=== PATIENT | female | born 1980 | race American Indian/Alaskan Native ===

== ENCOUNTER 2018-09-17 12:04 | Outpatient (CLI) | payer MEDICAID ==
[2018-09-17] MEDS ORDERED: LACTATED RINGERS 500 ML IV ONE (12:10)
[2018-09-17 12:37] VITALS: BP 105/58
[2018-09-17] MEDS ORDERED: NITRATEST PAPER MC ONE (12:40)
[2018-09-17 13:01] LABS: Bacteria,Urine 1+ /HPF (Negative); Bilirubin,Urine NEG (Negative); Blood,Urine NEG (Negative); Color,Urine Yellow (Yellow); Mucus,Urine 2+ /HPF; Protein,Urine <15 mg/dL mg/dL (Negative)
--- NOTE | 2018-09-18 09:24 | Ultrasound Report ---
Limited OB sonogram: History: CHANDAN. Findings: Gestation: Single Position: Cephalic Amniotic Fluid: CHANDAN = 15.7 cm Heart Rate: 101 BPM
== END 2018-09-17 14:20 | disposition home or self-care (01) ==
LOC: TRG 12:04
PROVIDERS: ATTEND Obstetrics & Gynecology
DX: O47.03 False labor before 37 completed weeks of gestation, third trimester (principal); O13.3 Gestational [pregnancy-induced] hypertension without significant proteinuria, third trimester; O24.419 Gestational diabetes mellitus in pregnancy, unspecified control; Z3A.32 32 weeks gestation of pregnancy
CPT/HCPCS: 76815; 81001

== ENCOUNTER 2018-10-29 06:07 | Inpatient (IN) | payer MEDICAID ==
[2018-10-29] MEDS ORDERED: PITOCin/NS 20 UNIT/1000ML DRIP 20,000 MILLIUNITS/1,000 ML BAG IV ONE (06:46)
--- NOTE | 2018-10-29 07:20 | History and Physical Report ---
History of Present Illness Date of examination: 10/29/18 (pt arrived 6cm dilated) Date of admission: 10/29/18 06:18 History of present illness: EDC Confirmation: 11/12/2018 Gestational Age: 24 weeks Past History : 12 Term Births: 6 Premature Births: 3 Living Children: 9 Para: 10 Mult. Births: 1 Prev : 0 Prev. attempt? 0 Aborta: 1 Elect. Ab: 0 Spont. Ab: 1 Ectopics: 0 # 1 Delivery date: 1999 Weeks Gestation: 41 labor: no Delivery type: Anesthesia type: epidural Delivery location: [facility] Sex: Male weight: 9-15 # 2 Delivery date: 2003 Weeks Gestation: 39 labor: no Delivery type: Anesthesia type: none Delivery location: [facility] Infant Sex: Female weight: 8-10 # 3 Delivery date: 2005 Weeks Gestation: 37 labor: no Delivery type: Delivery location: [facility] Sex: Male weight: 8-12 # 4 Delivery date: 2006 Weeks Gestation: 37 labor: no Delivery type: Delivery location: [place] Sex: Female weight: 7-10 # 5 Delivery date: 2007 Weeks Gestation: 38 labor: no Delivery type: Delivery location: [facility] Infant Sex: Male weight: 9-15 # 6 Delivery date: 2008 Weeks Gestation: 37 labor: no Delivery type: Delivery location: [facility] Infant Sex: Male weight: 7-5 # 7 Delivery date: 2010 Weeks Gestation: 36 labor: no Delivery type: Delivery location: [facility] Sex: Male weight: 7-15 Comments: PROM # 8 Delivery date: 2012 Weeks Gestation: 36 labor: yes Delivery type: Delivery location: [facility] Infant Sex: Female weight: 6-5 # 9 Delivery date: 2014 Weeks Gestation: 36 Delivery type: Delivery location: [facility] Infant Sex: Female weight: 6-12 Comments: PROM # 10 Delivery date: 2015 Weeks Gestation: 22 Delivery type: Delivery location: [facility] Sex: Male Comments: PPROM - nonviable # 11 Delivery date: 2018 Weeks Gestation: 17 Delivery type: SAB Comments: twins Past Medical History: Gestational Diabetes - 2009 Hypertension - no meds Past Surgical History: Negative Past Surgical History Past Medical History Surgery (Non-transactional attorney): Negative Past Surgical History Abnormal PAP: negative ZEN Exposure: negative Infertility: negative Uterine Anomaly: negative Uterine Surgery (not C/S): negative Other Gynecologic Problems: negative Family Hx: DM - maternal side High cholesterol - paternal side Social Hx: Patient is Smoking History: Patient has never smoked. Infection History Hx of STD: none HIV Risk Eval: low risk Hepatitis B Risk Eval: low risk Personal hx. of genital herpes: no Partner hx. of genital herpes: no Rash, Viral, or Febrile illness since last LMP? no Varicella/Chicken Pox Status: Immunized TB Risk: no Genetic History ADVANCED MATERNAL AGE Congenital Heart Defect: Mom: no Dad: no Cristobal Disease: Mom: no Dad: no Thalassemia Mom: no Dad: no Neural Tube Defect Mom: no Dad: no Down's Syndrome Mom: no Dad: no Triston-Sachs Mom: no Dad: no Sickle Cell Disease/Trait Mom: no Dad: no Hemophilia Mom: no Dad: no Muscular Dystrophy Mom: no Dad: no Cystic Fibrosis Mom: no Dad: no [place] Chorea Mom: no Dad: no Mental Retardation Mom: no Dad: no Fragile X Mom: no Dad: no Other Genetic/Chromosomal Disorder Mom: no Dad: no Child w/other defect Mom: no Dad: no Enviromental Exposures Xray Exposure: no Medication, drug, or alcohol use since LMP: no Chemical/Other Exposure: no Exposure to Cat Liter: no Hx of Parvovirus (Fifth Disease): no 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 Comments: Pt instructed per [employer] to be on rest and stop employment Active Medications (reviewed today): None Current Allergies: PCN (PENICILLIN V POTASSIUM) (Critical) Past History - Obstetrical History Expected Date of Delivery: 11/12/18 Actual Gestation: 38 Week(s) 0 Day(s) : 12 Para: 9 Hx # Term Pregnancies: 6 Number of Pregnancies: 3 (set of twins) Spontaneous Abortions: 1 Number of Living Children: 9 Medications and Allergies Allergies Allergy/AdvReac Type Severity Reaction Status Date / Time Penicillins Allergy Rash Verified 03/06/13 09:28 Home Medications Medication Instructions Recorded Confirmed Last Taken Type Hydrocodone Bit/Acetaminophen 1 each PO Q6HR #15 tablet 03/06/13 Unknown Rx [Lortab 5-500 Tablet] Hyoscyamine Subl [Levsin Sl] 0.125 mg PO Q6HR #20 tablet 03/06/13 Unknown Rx Ibuprofen [Motrin] 600 mg PO Q8H PRN #60 tablet 03/06/13 Unknown Rx Promethazine [Phenergan] 25 mg PO Q6H PRN #20 tablet 03/06/13 Unknown Rx Active Meds: Active Medications Acetaminophen (Tylenol) 650 mg PO Q4H PRN PRN Reason: Pain MILD(1-3)/Fever >100.5/[place] Bisacodyl (Dulcolax) 10 mg CA BID PRN PRN Reason: Constipation Diphenhydramine HCl (Benadryl) 25 mg PO Q6H PRN PRN Reason: Itching Diphtheria/Tetanus/Acell Pertussis (Boostrix) 0.5 ml IM .ONCE ONE Stop: 10/30/18 07:11 Docusate Sodium (Colace) 100 mg PO BID RACHAEL Oxytocin/Sodium Chloride (Pitocin/Ns 20 Unit/1000ml Drip) 20 units in 1,000 mls @ 125 mls/hr IV DIRECT RACHAEL Lactated Ringer's (Lactated Ringers) 1,000 mls @ 125 mls/hr IV DIRECT RACHAEL Ibuprofen (Ibuprofen) 600 mg PO Q6H RACHAEL Magnesium Hydroxide (Milk Of Magnesia) 30 ml PO HS PRN PRN Reason: Constipation Measles/Mumps/Rubella Vaccine Live (M-M-R Ii Vaccine) 0.5 ml SUB-Q .ONCE ONE Stop: 10/30/18 07:11 Mineral Oil (Mineral Oil) 30 ml PO QHS PRN PRN Reason: Constipation Multi-Ingredient Ointment (Lansinoh) 1 applic TP PRN PRN PRN Reason: Sore Nipples Multivitamins/Iron/Calcium ( Vitamin) 1 each PO QDAY RACHAEL Ondansetron HCl (Zofran) 4 mg IV Q8H PRN PRN Reason: Nausea And Vomiting Promethazine HCl (Phenergan) 25 mg PO Q6H PRN PRN Reason: Nausea And Vomiting Sodium Chloride (Sodium Chloride Flush Syringe 10 Ml) 10 ml IV PRN NR Terbutaline Sulfate (Brethine) 0.25 mg SUB-Q ONCE PRN PRN Reason: Hyperstimulation/Hypertonicity Witch Mariama/Glycerin (Tucks Pad) 1 each TP PRN PRN PRN Reason: Hemorrhoid/cleansing/soothing - Vital Signs Vital signs: Vital Signs Pulse BP 75 157/74 10/29/18 06:26 10/29/18 06:26 Temp Pulse Resp BP Pulse Ox 73 134/69 10/29/18 07:01 10/29/18 07:01 - Physical Exam Breasts: Positive: deferred Cardiovascular: Regular rate, Normal S1, Normal S2 Lungs: Positive: Normal air movement Abdomen: Positive: normal appearance, soft, normal bowel sounds. Negative: distention, tenderness Genitourinary (Female): Positive: normal external genitalia Vulva: both: normal Vagina: Positive: normal moisture. Negative: discharge Cervix: Negative: lesion, discharge Uterus: Positive: normal size, normal contour Adnexa: both: normal Anus/Rectum: Positive: normal perianal skin, heme negative. Negative: rectal mass, hemorrhoids Extremities: Positive: normal Deep Tendon Reflex Grade: Normal +2 - Obstetrical FHR: category 1 Uterine Contraction Monitor Mode: External Cervical Dilatation: 6 (SROM @ 0440) Cervical Effacement Percentage: 100 station: 0 Uterine Contraction Pattern: Regular Uterine Tone Measurement Phase: Resting Uterine Contraction Intensity: Strong/Firm Results All other labs normal. Laboratory Data-Patient Name: GIOVANI CHAMPAGNE GBS Negative Test Date Result Blood Type 04/11/2018 A Rh 04/11/2018 positive Antibody Screen Rubella 04/11/2018 Serology (RPR) 10/09/2018 HBsAg 04/11/2018 negative Hemoglobin 07/30/2018 10.9 Hematocrit 07/30/2018 33.7 Platelets 04/11/2018 354 Chlamydia DNA 04/11/2018 negative GC DNA/Culture Urine Culture Group B Strep cult PAP HIV 10/09/2018 AFP/Quad Screen 06/07/2018 Glucola Test 3hr GTT (Fasting) 1 hr 2 hr 3 hr Assessment and Plan Pt arrived in active labor Imminent Delivery
[2018-10-29 07:25] LABS: Hematocrit 33.7 % (30.3-42.9); Hemoglobin 11.3 gm/dl (10.1-14.3); Mean Corpuscular HGB Conc 34 % (30-34); Mean Corpuscular Volume 86 fl (79-97); Platelet Count 252 K/mm3 (140-440); Red Blood Count 3.92 M/mm3 (3.65-5.03); Red Cell Distribution Width 13.8 % (13.2-15.2)
--- NOTE | 2018-10-29 07:25 | Procedure Note ---
OB Delivery Note - Delivery Date of Delivery: 10/29/18 Humidifier Operator: YARELIS SPRAGUE Estimated blood loss: 300cc - Vaginal Delivery presentation: vertex Delivery position: OA Intrapartum events: precipitous labor- <3hr Delivery induction: none Delivery monitor: external FHT, external uterine Route of delivery: Delivery placenta: spontaneous Delivery cord: nuchal cord, 3 umbilical vessels Episiotomy: none Delivery laceration: none Anesthesia: none Delivery comments: live born girl over intact perineum CAN X 1 reduced. Baby to mom's abdomen skin to skin Placenta and membrane delivered complete and intact, 3 vessel cord. Pit IVFs. 8/9, EBL 300, wgt 7-3. Mom and baby remain LDR stable. - Infant A at 1 minute: 8 at 5 minutes: 9 Infant Gender: Female (wgt 7-3)
[2018-10-29] MEDS ORDERED: BENADRYL PO PRN (08:00)
[2018-10-29] MEDS ORDERED: LACTATED RINGERS 1,000 ML IV SCH (08:00)
[2018-10-29] MEDS ORDERED: ZOFRAN IV PRN (08:00)
[2018-10-29] MEDS ORDERED: PITOCin/NS 20 UNIT/1000ML DRIP 20 UNITS/1,000 ML BAG IV SCH (08:00)
[2018-10-29] MEDS ORDERED: PHENERGAN PO PRN (08:00)
[2018-10-29] MEDS ORDERED: SODIUM CHLORIDE FLUSH SYRINGE 10 ML IV PRN (09:00)
[2018-10-29] MEDS ORDERED: BRETHINE SUB-Q PRN (09:00)
[2018-10-29] MEDS ORDERED: LANSINOH TP PRN (09:00)
[2018-10-29] MEDS ORDERED: TUCKS PAD TP PRN (09:00)
[2018-10-29] MEDS ORDERED: TYLENOL PO PRN (09:00)
[2018-10-29 09:06] LABS: Alanine Aminotransferase 13 units/L (7-56)
--- NOTE | 2018-10-29 09:32 | Event Note ---
Date: 10/29/18 RN reported elevate BP x2 post delivery. Reported that PI labs were in progress per verbal order from Priscilla Moreland CNM. Will continue to monitor BP values and lab results. Pt denies any [place], visual disturbances, RUQ pain. DTRs 2+, PIH assessment WNL.
[2018-10-29] MEDS ORDERED: DULCOLAX PR PRN (10:00)
[2018-10-29] MEDS: COLACE PO SCH ×2 (10:55→23:27)
[2018-10-29] MEDS: PRENATAL VITAMIN PO SCH (10:55)
[2018-10-29] MEDS: IBUPROFEN PO SCH ×3 (10:56→23:28)
[2018-10-29 13:08] LABS: Bilirubin,Urine NEG (Negative); Blood,Urine LG (Negative); Color,Urine Yellow (Yellow); Mucus,Urine FEW /HPF; Protein,Urine <15 mg/dL mg/dL (Negative); Urobilinogen,Urine < 2.0 mg/dL (<2.0)
[2018-10-29 13:09] LABS: RBC,Urine > 182.0 /HPF (0.0-6.0)
[2018-10-29 21:16] LABS: Hematocrit 31.9 % (30.3-42.9); Hemoglobin 10.7 gm/dl (10.1-14.3)
[2018-10-29] MEDS ORDERED: MINERAL OIL PO PRN (22:00)
[2018-10-29] MEDS ORDERED: MILK OF MAGNESIA PO PRN (22:00)
[2018-10-30] MEDS: IBUPROFEN PO SCH (05:29)
[2018-10-30] MEDS ORDERED: BOOSTRIX IM ONE (06:00)
--- NOTE | 2018-10-30 08:10 | Discharge Summary ---
Providers - Providers Date of Admission: 10/29/18 06:18 Date of discharge: 10/30/18 (desires d/c home today) Attending physician: JANUARY DAUGHERTY Primary care physician: JANUARY DAUGHERTY Hospitalization Reason for admission: Labor Condition: Good Pertinent studies: post delivery H&H 10.7/31.9 Procedures: Hospital course: uncomplicated and course Disposition: DC-01 TO HOME OR SELFCARE - Discharge Diagnoses (1) Normal spontaneous vaginal delivery Status: Acute Core Measure Documentation - Palliative Care Palliative Care/ Comfort Measures: Not Applicable - Core Measures Any of the following diagnoses?: none Exam - Constitutional Vitals: Temp Pulse Resp BP Pulse Ox 98.2 F 71 18 115/74 100 10/30/18 07:40 10/30/18 07:40 10/30/18 07:40 10/30/18 07:40 10/29/18 13:44 General appearance: Present: no acute distress, well-nourished - EENT Eyes: Present: PERRL ENT: hearing intact, clear oral mucosa - Neck Neck: Present: supple, normal ROM - Respiratory Respiratory effort: normal Respiratory: bilateral: CTA - Cardiovascular Heart Sounds: Present: S1 & S2. Absent: rub, click - Extremities Extremities: pulses symmetrical, No edema Peripheral Pulses: within normal limits - Abdominal General gastrointestinal: Present: soft, non-tender, non-distended, normal bowel sounds Female genitourinary: Present: normal - Integumentary Integumentary: Present: clear, warm, dry - Musculoskeletal Musculoskeletal: gait normal, strength equal bilaterally - Psychiatric Psychiatric: appropriate mood/affect, intact judgment & insight - Neurologic Neurologic: CNII-XII intact, moves all extremities - Additional findings Additional findings: lochia scant, fundus firm Plan Activity: no restrictions Diet: regular Follow up with: JANUARY DAUGHERTY MD [Primary Care Provider] - 7 Days Prescriptions: Ibuprofen [Motrin 800 MG tab] 800 mg PO Q8HR PRN #30 tablet PRN Reason: Pain
[2018-10-30] MEDS: COLACE PO SCH (09:53)
[2018-10-30] MEDS: PRENATAL VITAMIN PO SCH (09:53)
[2018-10-30] MEDS ORDERED: M-M-R II VACCINE SUB-Q ONE (11:00)
[2018-10-30 13:58] VITALS: BP 133/81
== END 2018-10-30 14:50 | disposition home or self-care (01) | DRG 774 ==
LOC: TRG 06:07 → LD 06:18 → OB 10:24
PROVIDERS: ADMIT Obstetrics & Gynecology; ATTEND Obstetrics & Gynecology
PROC: 10E0XZZ Delivery of Products of Conception, External Approach (ICD-10-PCS; principal; 2018-10-29)
PROC: 3E0234Z Introduction of Serum, Toxoid and Vaccine into Muscle, Percutaneous Approach (ICD-10-PCS; 2018-10-30)
DX: O62.3 Precipitate labor (principal); O16.4 Unspecified maternal hypertension, complicating childbirth; O69.81X0 Labor and delivery complicated by cord around neck, without compression, not applicable or unspecified; Z88.0 Allergy status to penicillin; Z3A.38 38 weeks gestation of pregnancy; Z37.0 Single live birth; Z83.3 Family history of diabetes mellitus; Z23 Encounter for immunization
CPT/HCPCS: 36415; 81001; 82565; 83615; 84450; 84460; 84550; 85014; 85018; 85027; 86592; 86850; 86900; 86901; 87086; 90471; 90715; G0378; J2590